=== PATIENT | female | born 1990 ===

== ENCOUNTER 2018-08-23 14:23 | Inpatient (IN) | payer OTHER ==
[~2018-08-23] VITALS: Ht 172.7 cm; Wt 92.5 kg
== END 2018-08-25 11:10 | disposition home or self-care (01) | DRG 768 ==
LOC: OB/GYN 14:23 → LDR 14:23 → O/R 08-24 13:59 → OB/GYN 08-24 16:12
PROVIDERS: Obstetrics & Gynecology Maternal & Fetal Medicine
PROC: 0UCC8ZZ Extirpation of Matter from Cervix, Via Natural or Artificial Opening Endoscopic (ICD-10-PCS; 2018-08-23)
PROC: 4A1HXCZ Monitoring of Products of Conception, Cardiac Rate, External Approach (ICD-10-PCS; 2018-08-23)
PROC: 3E033VJ Introduction of Other Hormone into Peripheral Vein, Percutaneous Approach (ICD-10-PCS; 2018-08-24)
PROC: 10D18ZZ Extraction of Products of Conception, Retained, Via Natural or Artificial Opening Endoscopic (ICD-10-PCS; 2018-08-24)
PROC: 3E0P7VZ Introduction of Hormone into Female Reproductive, Via Natural or Artificial Opening (ICD-10-PCS; 2018-08-24)
PROC: 10E0XZZ Delivery of Products of Conception, External Approach (ICD-10-PCS; principal; 2018-08-24 13:00)
DX: O42.012 Preterm premature rupture of membranes, onset of labor within 24 hours of rupture, second trimester (principal); Z37.4 Twins, both stillborn; O34.32 Maternal care for cervical incompetence, second trimester; O30.042 Twin pregnancy, dichorionic/diamniotic, second trimester; O73.0 Retained placenta without hemorrhage; Z3A.19 19 weeks gestation of pregnancy

== ENCOUNTER 2018-08-31 14:55 | Outpatient (CLI) | payer OTHER | END 2018-08-31 15:00 | disposition home or self-care (01) | LOC: LAB 14:55 | DX: N91.1 Secondary amenorrhea (principal) ==

== ENCOUNTER 2019-01-12 07:15 | Inpatient (IN) | payer OTHER | END 2019-01-19 10:27 | disposition home or self-care (01) | DRG 747 | LOC: SURH 01-17 07:15 → O/R 01-17 09:25 → SURG-SUITE 01-17 09:25 → SURH 01-17 12:00 → OB/GYN 01-17 15:56 → SURG-SUITE 01-17 16:04 | PROVIDERS: ADMIT Obstetrics & Gynecology | PROC: 0UV Female Reproductive System, Restriction (ICD-10-PCS; principal; 2019-01-17 12:00) | DX: N88.3 Incompetence of cervix uteri (principal) ==

== ENCOUNTER 2019-01-25 11:49 | Outpatient (CLI) | payer OTHER | END 2019-01-25 11:55 | disposition home or self-care (01) | LOC: LAB 11:49 | DX: R10.2 Pelvic and perineal pain (principal); B96.89 Other specified bacterial agents as the cause of diseases classified elsewhere ==

== ENCOUNTER → 2019-09-07 17:07 | Outpatient (CLI) | payer OTHER | END | disposition home or self-care (01) | LOC: LAB 17:07 | DX: Z3A.16 16 weeks gestation of pregnancy (principal); O09.72 Supervision of high risk pregnancy due to social problems, second trimester ==

== ENCOUNTER → 2019-09-24 12:06 | Outpatient (CLI) | payer OTHER | END | disposition home or self-care (01) | LOC: LAB 12:06 | DX: N30.00 Acute cystitis without hematuria (principal) ==

== ENCOUNTER 2019-12-27 11:32 | Outpatient (CLI) | payer OTHER | END 2019-12-27 12:22 | disposition home or self-care (01) | LOC: NST 11:32 | DX: Z34.83 Encounter for supervision of other normal pregnancy, third trimester (principal) ==

== ENCOUNTER 2020-01-11 10:41 | Outpatient (CLI) | payer OTHER | END 2020-01-11 11:48 | disposition home or self-care (01) | LOC: NST 10:41 | DX: O60.03 Preterm labor without delivery, third trimester (principal) ==

== ENCOUNTER 2020-01-24 10:31 | Inpatient (IN) | payer OTHER ==
[~2020-01-24] VITALS: Ht 172.7 cm; Wt 3.2 kg
[2020-02-06] MEDS ORDERED: OBSTETRIX ONE1 EACH PO (10:42)
[2020-02-09] MEDS ORDERED: KETO10TA2 PO (09:19)
[2020-02-09] MEDS ORDERED: OXYC1TAB9 PO (09:19)
== END 2020-02-09 12:00 | disposition home or self-care (01) | DRG 786 ==
LOC: O/R 02-06 08:30 → LDR 02-06 09:00 → SURG-SUITE 02-06 12:01 → LDR 02-06 13:45 → SURG-SUITE 02-09 12:00
PROVIDERS: ADMIT Obstetrics & Gynecology
PROC: 0UCC0ZZ Extirpation of Matter from Cervix, Open Approach (ICD-10-PCS; 2020-02-06)
PROC: 4A1HXFZ Monitoring of Products of Conception, Cardiac Rhythm, External Approach (ICD-10-PCS; 2020-02-06)
PROC: 3E033VJ Introduction of Other Hormone into Peripheral Vein, Percutaneous Approach (ICD-10-PCS; 2020-02-06)
PROC: 0DQ80ZZ Repair Small Intestine, Open Approach (ICD-10-PCS; 2020-02-06)
PROC: 10D00Z1 Extraction of Products of Conception, Low, Open Approach (ICD-10-PCS; principal; 2020-02-06 09:00)
DX: O65.5 Obstructed labor due to abnormality of maternal pelvic organs (principal); O34.33 Maternal care for cervical incompetence, third trimester; O98.82 Other maternal infectious and parasitic diseases complicating childbirth; K91.71 Accidental puncture and laceration of a digestive system organ or structure during a digestive system procedure; Z3A.38 38 weeks gestation of pregnancy; Z37.0 Single live birth; Y65.8 Other specified misadventures during surgical and medical care

== ENCOUNTER 2020-01-24 10:44 | Outpatient (CLI) | payer OTHER | END 2020-01-24 11:20 | disposition home or self-care (01) | LOC: NST 10:44 | DX: Z34.83 Encounter for supervision of other normal pregnancy, third trimester (principal) ==

== ENCOUNTER 2020-01-31 11:31 | Outpatient (CLI) | payer OTHER | END 2020-01-31 12:28 | disposition home or self-care (01) | LOC: NST 11:31 | DX: O34.33 Maternal care for cervical incompetence, third trimester (principal) ==